=== PATIENT | female | born 1980 | race Hispanic/Latino ===

== ENCOUNTER 2018-01-18 14:04 | Emergency (ER) | payer BC ==
[2018-01-18] MEDS ORDERED: Lorazepam 2 MG/ML VIAL ONE (15:46)
== END 2018-01-18 16:57 | disposition home or self-care (01) ==
LOC: ERS 14:04
DX: F41.9 Anxiety disorder, unspecified (principal)
CPT/HCPCS: 96374; J2060

== ENCOUNTER 2018-05-27 06:48 | Outpatient (CLI) | payer BC ==
--- NOTE | 2018-05-27 08:11 | ULT ---
OB ULTRASOUND: HISTORY: Assess anatomy. FINDINGS: There is a single viable intrauterine gestation with ultrasound measurement indicating a 21-week 3-da y gestation. BIOMETRY: BPD: 21 weeks 3 days HC: 21 weeks 2 days AC: 21 weeks 6 days FL: 21 weeks 0 days EFW: 418 grams, 21 weeks 4 days. Placenta: Posterior. Presentation: Transverse with head to maternal right. Amniotic fluid: Within normal range. heart rate: 139. Cervical length: 5.1 cm. Anatomy evaluation is limited due to body habitus. Intracranial contents are identified. Four chamb er heart, kidneys, and facial features are not adequately evaluated due to position and body habitus. stomach, bladder, spine, and cord insertion identified. Extremities and 3-vessel cord are visu alized. IMPRESSION: A 21-week 3-day gestation by ultrasound measurement. anatomy evaluation is somewhat limited; h owever, no abnormality identified as visualized on this study. POS: [facility]
== END 2018-05-27 06:49 | disposition home or self-care (01) ==
LOC: BICULT 06:48
PROVIDERS: ATTEND Family Medicine
DX: Z34.92 Encounter for supervision of normal pregnancy, unspecified, second trimester (principal); Z3A.21 21 weeks gestation of pregnancy
CPT/HCPCS: 76805

== ENCOUNTER 2018-10-12 14:48 | Outpatient (CLI) | payer BC ==
--- NOTE | 2018-10-12 16:46 | ULT ---
OB ULTRASOUND: BIOPHYSICAL PROFILE ULTRASOUND: HISTORY: Past due date. Size. distress. FINDINGS: A single live intrauterine gestation is seen with measurements corresponding to an estimated gestatio nal age of 40 weeks 3 days and an VIRGILIO of 10/09/2018. Estimated weight measures 4636 g or 10 lb s 4 oz (in the 97th percentile by Hadlock criteria). measurements are as follows: BPD: 9.40 cm (38 weeks 2 day) HC: 35.76 cm (42 weeks 0 days) AC: 39.63 cm FL: 8.09 cm (41 weeks 3 days) heart rate measures 150 beats per minute. JERRICA measures 11 cm. Placenta is posterior and to th e left without placenta previa. BIOPHYSICAL PROFILE: tone: 0 breathin movements: 2 Amniotic fluid: 2 IMPRESSION: 1. A single live intrauterine gestation, at 40 weeks' 3 days' estimated gestational age, with an VIRGILIO of 10/09/2018. 2. Ultrasound biophysical profile score is 6/8. POS: [facility]
== END 2018-10-12 14:49 | disposition home or self-care (01) ==
LOC: ULT 14:48
PROVIDERS: ATTEND Family Medicine
DX: Z34.93 Encounter for supervision of normal pregnancy, unspecified, third trimester (principal); Z3A.40 40 weeks gestation of pregnancy
CPT/HCPCS: 76805; 76819

== ENCOUNTER 2018-10-14 19:12 | Inpatient (IN) | payer BC ==
--- NOTE | 2018-10-14 07:39 | HP ---
HISTORY OF PRESENT ILLNESS: This is a 37-year-old female, G4, P3 at 40-5/7th weeks' gestation with an EDC of 10/08/2018. The patient has history of 3 prior normal vaginal deliveries without difficulties. However, she does have large babies. The patient has had minimal to no contractions whatsoever and she is now 40 weeks 5 days. She is being admitted for Cytotec/Pitocin induction. She is morbidly obese and appears to have a fairly large baby. Her last baby was over 8 pounds, but she did have a vaginal delivery. PAST MEDICAL HISTORY: Morbid obesity and anxiety. ALLERGIES: NONE. PAST SURGICAL HISTORY: Include IUD and removal. Three prior normal vaginal deliveries. Excision of lipoma, left thigh by Dr. Bazan. FAMILY HISTORY: Unremarkable. SOCIAL HISTORY: She is . She has 3 kids. 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 She is a nonsmoker and does not drink alcohol. REVIEW OF SYSTEMS: As above. PHYSICAL EXAMINATION: VITAL SIGNS: Blood pressure 122/72. GENERAL: No acute distress. HEENT: Clear. HEART: Regular rate and rhythm. LUNGS: Clear. ABDOMEN: Morbidly obese. EXTREMITIES: No edema. LABORATORY DATA: GBS negative. Fasting blood sugar 84, hematocrit 33. HIV negative. Thyroid normal. Hepatitis B negative. RPR negative. Urine culture negative. Rubella immune. A positive blood type. GC and Chlamydia negative. HPV negative. Paps are normal. Thyroid normal. ASSESSMENT: 1. A 40-5/7th weeks intrauterine . 2. Morbidly obese. PLAN: 1. Routine L and D orders. 2. Routine anesthesia. 3. Cytotec/Pitocin induction. Job ID: [id number]
[2018-10-14] MEDS ORDERED: HYDROcodone/Acetaminophen 5/325 mg Tablet PO PRN (19:36)
[2018-10-14] MEDS ORDERED: Ondansetron PF 4 MG/2 ML Vial IVP PRN ×2 (19:36→22:13)
[2018-10-14] MEDS ORDERED: Ibuprofen 800 MG TAB PO PRN (19:36)
[2018-10-14] MEDS ORDERED: NS w/ Oxytocin 10 units 500 ML IV SCH (19:36)
[2018-10-14] MEDS ORDERED: Butorphanol Tartrate 1 MG/ML VIAL SLOW IVP PRN (19:36)
[2018-10-14] MEDS ORDERED: Lidocaine 1% (PF) 30 ML VIAL SC PRN (19:36)
[2018-10-14] MEDS ORDERED: Misoprostol 200 MCG TAB PR PRN (19:36)
[2018-10-14] MEDS ORDERED: hydrALAZINE 20 MG/ML VIAL SLOW IVP PRN (19:36)
[2018-10-14] MEDS ORDERED: Promethazine HCl 25 MG/ML VIAL IM PRN ×2 (19:36→22:13)
[2018-10-14 19:52] VITALS: BMI 44.6
[2018-10-14] MEDS: Lactated Ringer's 1,000 ML IV SCH ×2 (20:05→22:17)
[2018-10-14 20:23] LABS: Hemoglobin 12.9 g/dL (12.0-16.0); Mean Corpuscular HGB CONC 35.2 g/dL (32.0-36.0); Mean Corpuscular Hemoglobin 32.3 pg (27.0-31.0); Mean Corpuscular Volume 91.7 fL (78.0-98.0); Mean Platelet Volume 9.1 fL (7.4-10.4); Platelet Count 212 thou/uL (130-400); RBC Distribution Width 12.3 % (11.5-14.5); White Blood Cell (WBC) Count 11.1 thou/uL (4.8-10.8)
[2018-10-14 21:02] LABS: Syphilis Antibody Nonreactive (Nonreactive); Syphilis Antibody Index 0.03 S/CO (<1.00 Non-Reactive)
[2018-10-14] MEDS ORDERED: Fentanyl 4 mcg/Bup 0.1% Cadd 100 ML ONE (21:08)
[2018-10-14] MEDS ORDERED: Lidocaine 1.5%/Epinephrine 1:200,000 5 ML AMPUL IJ ONE (21:09)
[2018-10-14] MEDS ORDERED: ePHEDrine/0.9% NaCl/PF SYRINGE 50 mg/10 ml SLOW IVP PRN (22:13)
[2018-10-14] MEDS ORDERED: Lactated Ringer's 500 ML IV PRN (22:13)
[2018-10-14] MEDS ORDERED: Acetaminophen 325 MG TAB PO PRN (22:13)
[2018-10-14] MEDS ORDERED: diphenhydrAMINE 50 MG/ML VIAL IVP PRN (22:13)
[2018-10-14] MEDS ORDERED: Naloxone HCl 0.4 mg/ml Vial IVP PRN ×2 (22:13)
[2018-10-14] MEDS ORDERED: Communication Order-Pharmacy FS SCH (22:15)
[2018-10-14] MEDS ORDERED: Fentanyl 4 mcg/Bupivacaine 0.1% Cassette 100 ML EPIDURAL SCH (22:15)
[2018-10-14 23:15] LABS: Hep B Surf Ag Non-Reactive S/CO (NonReactive)
[2018-10-15] MEDS: NS / Oxytocin 40 units/1000ml 1,000 ML IV PRN ×2 (04:45→06:02)
[2018-10-15] MEDS ORDERED: Adacel (T-DAP) 0.5 ML SYRINGE IM ONE (06:32)
[2018-10-15] MEDS ORDERED: Bisacodyl 10 MG SUPP PR PRN (06:32)
[2018-10-15] MEDS ORDERED: Milk Of Magnesia 30 ML UDCUP PO PRN (06:32)
[2018-10-15] MEDS ORDERED: hydrALAZINE 20 MG/ML VIAL SLOW IVP PRN (06:32)
[2018-10-15] MEDS ORDERED: Lanolin Ointment 7 GM TUBE TOP PRN (06:32)
[2018-10-15] MEDS ORDERED: NS / Oxytocin 40 units/1000ml 1,000 ML IV SCH (06:32)
[2018-10-15] MEDS: Prenatal Vitamin 1 TAB PO SCH (09:04)
[2018-10-15] MEDS: Docusate Calcium (SURFAK) 240 MG CAP PO SCH ×2 (09:04→21:27)
[2018-10-15] MEDS: Ferrous Sulfate 325 MG TAB PO SCH ×2 (09:05→18:19)
--- NOTE | 2018-10-15 09:59 | DN ---
DATE OF PROCEDURE: 10/15/2018 PREOPERATIVE DIAGNOSIS: Term . POSTOPERATIVE DIAGNOSIS: Term . PROCEDURE PERFORMED: Spontaneous vaginal delivery. ANESTHESIA: Epidural. DESCRIPTION OF PROCEDURE: This 37-year-old female, G4, P3, taken to the room complaining pushing. Prepped and draped sterilely. Delivered a baby boy, Apgars of 8 at one minute and 9 at five minutes. Baby did breathe and cry vigorously upon delivery. No lacerations are present. Delivered placenta with 3-vessel intact. ESTIMATED BLOOD LOSS: 50 mL. Mother and baby did very well. Job ID: [id number]
[2018-10-15] MEDS: Acetaminophen 500 MG TAB PO PRN (21:27)
[2018-10-16 05:14] LABS: Hemoglobin 11.1 g/dL (12.0-16.0)
[2018-10-16] MEDS: Acetaminophen 500 MG TAB PO PRN (05:52)
[2018-10-16] MEDS: Ferrous Sulfate 325 MG TAB PO SCH (08:31)
[2018-10-16] MEDS: Docusate Calcium (SURFAK) 240 MG CAP PO SCH (09:49)
[2018-10-16] MEDS: Prenatal Vitamin 1 TAB PO SCH (09:49)
[2018-10-16 10:26] VITALS: BP 118/68; TEMP 97.9
== END 2018-10-16 13:50 | disposition home or self-care (01) | DRG 807 ==
LOC: L&D 19:12 → 3SW 10-15 06:56
PROVIDERS: ADMIT Family Medicine; ATTEND Family Medicine
PROC: 10E0XZZ Delivery of Products of Conception, External Approach (ICD-10-PCS; principal; 2018-10-14)
PROC: 3E0P7VZ Introduction of Hormone into Female Reproductive, Via Natural or Artificial Opening (ICD-10-PCS; 2018-10-14)
PROC: 3E033VJ Introduction of Other Hormone into Peripheral Vein, Percutaneous Approach (ICD-10-PCS; 2018-10-14)
DX: O99.214 Obesity complicating childbirth (principal); Z37.0 Single live birth; E66.01 Morbid (severe) obesity due to excess calories; O99.344 Other mental disorders complicating childbirth; O36.63X0 Maternal care for excessive fetal growth, third trimester, not applicable or unspecified; F41.9 Anxiety disorder, unspecified; Z3A.40 40 weeks gestation of pregnancy
CPT/HCPCS: 36415; 51702; 76805; 76819; 85014; 85018; 85027; 86780; 86850; 86900; 86901; 87340; J2001; J2405; J2590; J3490

== ENCOUNTER 2019-04-26 08:13 | Outpatient (CLI) | payer BC ==
--- NOTE | 2019-04-26 11:19 | ULT ---
RIGHT BREAST LIMITED ULTRASOUND: HISTORY: Patient presents with a small palpable finding in the retroareolar region of the right breast. On mammography, there is evidence for a small subareolar duct up to 0.3 cm in diameter. On ultrasoun d examination in the 12 o'clock retroareolar region of the right breast there is 1 minimally dilated duct up to 0.3 cm in size. This probably corresponds to the mammographic finding and the palpable fi nding. IMPRESSION: BIRADS category 2, benign findings. Evidence for a minimally dilated duct in the upper subareolar re gion of the right breast. Annual followup screening mammograms are recommended. If the patient develops any new palpable finding or change in the palpable finding prior to that time , re-ultrasound examination should be considered. POS: OFF
--- NOTE | 2019-04-29 13:28 | MMO ---
Bilateral MAMMO Bilat Diag [facility]. CLINICAL HISTORY: Patient is 38 years old and is seen for diagnostic exam and lump or thickening in the sub-areolar region of the right breast. The patient has the following family history of breast cancer: sister, at age 39, malignant (generic), premenopausal, STAGE 4. The patient has no personal history of cancer. VIEWS: The views performed were: bilateral craniocaudal with tomosynthesis; bilateral mediolateral with tomosynthesis; bilateral mediolateral oblique with tomosynthesis; right mediolateral oblique spot compression with tomosynthesis; and right craniocaudal spot compression with tomosynthesis. FILMS COMPARED: The present examination has been compared to a prior imaging study performed at [facility] on 04/26/2019. This study has been interpreted with the assistance of computer-aided detection. MAMMOGRAM FINDINGS: There are scattered fibroglandular densities. There is an asymmetric tubular structure/solitary dilated duct measuring 3 millimeters with circumscribed margins seen in the anterior sub-areolar region of the right breast. Probably represents the palpbable finding. Duct on ultrasound. There are no suspicious masses, suspicious calcifications, or new areas of architectural distortion. IMPRESSION: THERE IS NO MAMMOGRAPHIC EVIDENCE OF MALIGNANCY. A ROUTINE FOLLOW-UP MAMMOGRAM AT AGE 41 IS RECOMMENDED. THE RESULTS OF THIS EXAM WERE SENT TO THE PATIENT. ACR BI-RADS Category 2 - Benign finding MAMMOGRAPHY NOTE: 1. A negative mammogram report should not delay a biopsy if a dominant of clinically suspicious mass is present. 2. Approximately 10% to 15% of breast cancers are not detected by mammography. 3. Adenosis and dense breasts may obscure an underlying neoplasm. Reported by: GHADA WILSON MD Electonically Signed: [id number]
== END 2019-04-26 08:14 | disposition home or self-care (01) ==
LOC: BICMAMMO 08:13
PROVIDERS: ATTEND Family Medicine
DX: N63.10 Unspecified lump in the right breast, unspecified quadrant (principal); Z80.3 Family history of malignant neoplasm of breast
CPT/HCPCS: 77066; G0279

== ENCOUNTER 2021-10-05 10:32 | Outpatient (CLI) | payer BC | END 2021-10-05 10:33 | disposition home or self-care (01) | LOC: BICMAMMO 10:32 | PROVIDERS: ATTEND Family Medicine | DX: Z12.31 Encounter for screening mammogram for malignant neoplasm of breast (principal); Z80.3 Family history of malignant neoplasm of breast | CPT/HCPCS: 77063; 77067 ==

== ENCOUNTER 2022-04-01 11:04 | Outpatient (CLI) | payer BC | END 2022-04-01 11:05 | disposition home or self-care (01) | LOC: EKG 11:04 | PROVIDERS: ATTEND Physician Assistant | DX: E66.01 Morbid (severe) obesity due to excess calories (principal); Z82.49 Family history of ischemic heart disease and other diseases of the circulatory system | CPT/HCPCS: 93017 ==